=== PATIENT | male | born 1975 ===

== ENCOUNTER 2021-12-11 20:08 | Emergency (ER) | payer OTHER ==
[2021-12-11 21:19] LABS: Basophils # (Auto) 0.1 K/mm3 (0.0-0.1); Basophils % (Auto) 0.5 % (0.0-1.8); Eosinophils # (Auto) 0.1 K/mm3 (0.0-0.4); Eosinophils % (Auto) 1.3 % (0.0-4.3); Hematocrit 43.8 % (35.5-45.6); Hemoglobin 15.4 gm/dl (11.8-15.2); Lymphocytes # (Auto) 2.5 K/mm3 (1.2-5.4); Mean Corpuscular HGB Conc 35 % (32-34); Mean Corpuscular Volume 86 fl (84-94); Monocytes # (Auto) 0.6 K/mm3 (0.0-0.8); Monocytes % (Auto) 5.6 % (0.0-7.3); Platelet Count 241 K/mm3 (140-440); Red Blood Count 5.08 M/mm3 (3.65-5.03); Red Cell Distribution Width 14.3 % (13.2-15.2)
[2021-12-11 21:31] LABS: Alanine Aminotransferase 39 units/L (7-56); Albumin 4.8 g/dL (3.9-5); BUN/Creatinine Ratio 11; Blood Urea Nitrogen 10 mg/dL (9-20); Calcium 9.3 mg/dL (8.4-10.2); Hemolysis Index 13
[2021-12-12 05:51] LABS: Bilirubin,Urine Negative (Negative); Blood,Urine Negative (Negative); Color,Urine Yellow (Yellow)
[2021-12-12 05:52] LABS: RBC,Urine < 1.0 /HPF (0.0-6.0); WBC,Urine < 1.0 /HPF (0.0-6.0)
[2021-12-12] MEDS ORDERED: SODIUM CHLORIDE 0.9% 1000 ML 1,000 ML IV ONE (07:35)
[2021-12-12] MEDS ORDERED: ONDANSETRON 4 MG/2 ML INJ IV ONE (07:35)
--- NOTE | 2021-12-12 08:27 | Emergency Department Report ---
ED Abdominal Pain HPI - General Chief Complaint: Abdominal Pain Stated Complaint: SEVERE ABD PAIN PUI?: No Time Seen by Provider: 12/12/21 08:13 Source: patient Mode of arrival: Ambulatory Limitations: No Limitations - History of Present Illness Initial Comments: Patient is a 46-year-old male that came to the emergency room last night with generalized abdominal pain associated nausea vomiting and diarrhea. He does not think that he ate anything bad. He has no family members with the same. He denies fever or chills. Denies dysuria. Denies hematuria. Patient has been in the ER most of the night at the time of this provider exam: He reports that he feels better than he did when he came in. Patient had elevated blood pressure on admission but he denied chest pain or shortness of breath. He has no history of hypertension. MD Complaint: abdominal pain -: Sudden, hour(s) Location: diffuse Severity scale (0 -10): 5 Quality: aching Consistency: constant Improves With: nothing Worsens With: nothing Associated Symptoms: nausea, vomiting, diarrhea. denies: fever, chills, constipation, dysuria, hematemesis, hematochezia, melena, hematuria, anorexia, syncope - Related Data Previous Rx's Medication Instructions Recorded Last Taken Type Ondansetron [Zofran Odt] 4 mg PO Q8HR PRN #10 tab.rapdis 12/12/21 Unknown Rx Allergies Allergy/AdvReac Type Severity Reaction Status Date / Time No Known Allergies Allergy Verified 12/11/21 20:54 ED Review of Systems ROS: Stated complaint: SEVERE ABD PAIN Other details as noted in HPI Comment: All other systems reviewed and negative ED Past Medical Hx - Past Medical History Previous Medical History?: No - Surgical History Past Surgical History?: No - Family History Family history: no significant - Social History Smoking Status: Never Smoker Substance Use Type: None - Medications Home Medications: Home Medications Medication Instructions Recorded Confirmed Last Taken Type Ondansetron [Zofran Odt] 4 mg PO Q8HR PRN #10 tab.rapdis 12/12/21 Unknown Rx ED Physical Exam - General Limitations: No Limitations General appearance: alert, in no apparent distress - Head Head exam: Present: atraumatic, normocephalic - Eye Eye exam: Present: normal appearance - ENT ENT exam: Present: mucous membranes moist - Neck Neck exam: Present: normal inspection - Respiratory Respiratory exam: Present: normal lung sounds bilaterally. Absent: respiratory distress - Cardiovascular Cardiovascular Exam: Present: regular rate, normal rhythm. Absent: systolic murmur, diastolic murmur, rubs, gallop - GI/Abdominal GI/Abdominal exam: Present: soft, normal bowel sounds - Rectal Rectal exam: Present: deferred - Extremities Exam Extremities exam: Present: normal inspection - Back Exam Back exam: Present: normal inspection - Neurological Exam Neurological exam: Present: alert, oriented X3 - Psychiatric Psychiatric exam: Present: normal affect, normal mood - Skin Skin exam: Present: warm, dry, intact, normal color. Absent: rash ED Course Vital Signs 12/11/21 12/12/21 20:49 11:08 Temperature 99.1 F 98.3 F Pulse Rate 71 69 Respiratory 18 18 Rate Blood Pressure 174/107 Blood Pressure 139/89 [Left] O2 Sat by Pulse 95 99 Oximetry ED Medical Decision Making - Lab Data Result diagrams: 12/11/21 21:00 12/11/21 21:00 - Medical Decision Making Labs 12/11/21 12/11/21 12/12/21 21:00 21:00 05:26 WBC 10.4 RBC 5.08 H Hgb 15.4 H Hct 43.8 MCV 86 MCH 30 MCHC 35 H RDW 14.3 Plt Count 241 Lymph % (Auto) 24.0 [place] % (Auto) 5.6 Eos % (Auto) 1.3 Baso % (Auto) 0.5 Lymph # (Auto) 2.5 [place] # (Auto) 0.6 Eos # (Auto) 0.1 Baso # (Auto) 0.1 Seg Neutrophils % 68.6 Seg Neutrophils # 7.2 Sodium 137 Potassium 3.9 Chloride 98.7 Carbon Dioxide 26 Anion Gap 16 BUN 10 Creatinine 0.9 Estimated GFR > 60 BUN/Creatinine Ratio 11 Glucose 119 H Calcium 9.3 Total Bilirubin 1.10 AST 29 ALT 39 Alkaline Phosphatase 67 Total Protein 7.5 Albumin 4.8 Albumin/Globulin Ratio 1.8 Lipase 19 Urine Color Yellow Urine Turbidity Clear Urine pH 7.0 Ur Specific [place] 1.015 Urine Protein 30 mg/dl Urine Glucose (UA) Negative Urine Ketones Negative Urine Blood Negative Urine Nitrite Negative Ur Reducing Substances Not Reportable Urine Bilirubin Negative Urine Ictotest Not Reportable Urine Urobilinogen 2.0 Ur Leukocyte Esterase Negative Urine WBC (Auto) < 1.0 Urine RBC (Auto) < 1.0 U Epithel Cells (Auto) < 1.0 Vital Signs 12/11/21 20:49 Temperature 99.1 F Pulse Rate 71 Respiratory 18 Rate Blood Pressure 174/107 O2 Sat by Pulse 95 Oximetry Vital Signs 12/11/21 12/12/21 20:49 11:08 Temperature 99.1 F 98.3 F Pulse Rate 71 69 Respiratory 18 18 Rate Blood Pressure 174/107 Blood Pressure 139/89 [Left] O2 Sat by Pulse 95 99 Oximetry Labs noted. UA noted. Nominal exam is unremarkable. Soft nontender, obese. He has no CVA tenderness. His vital signs are normal. Patient has gastroenteritis. His abdominal exam benign I am not going to scan him. He has improved with hydration and is taking p.o. Patient hydrated with normal saline and given Zofran. On discharge exam patient reports feeling better. He is taking p.o. His vital signs of normalized. Note that the patient had an increased blood pressure on arrival but he has no history of hypertension he will monitor. Patient being discharged home with discharge plan of care including diet, activity, medications and follow-up. He verbalizes understanding. - Differential Diagnosis Gastroenteritis Critical care attestation.: If time is entered above; I have spent that time in minutes in the direct care of this critically ill patient, excluding procedure time. ED Disposition Clinical Impression: Gastroenteritis, Elevated blood pressure reading Disposition: 01 HOME / SELF CARE / HOMELESS Is pt being admited?: No Does the pt Need Aspirin: No Condition: Stable Instructions: Viral Gastroenteritis, Adult, [id number] Additional Instructions: ADVANCE DIET SLOWLY STAY WELL HYDRATED WITH WATER MED ORDERED TODAY FOR NAUSEA FOLLOW UP WITH PCP IN 48 HOURS TO BE SURE YOU FEEL BETTER REFERRAL BELOW MONITOR YOUR BLOOD PRESSURE IT WAS ELEVATED WHEN YOU CAME TO ER- AVOID ALCOHOL Prescriptions: Ondansetron [Zofran Odt] 4 mg PO Q8HR PRN #10 tab.rapdis PRN Reason: Vomiting Referrals: BERONICA SHEARER MD [Primary Care Provider] - 3-5 Days Forms: Accompanied Note, Work/School Release Form(ED) Time of Disposition: 11:07 Print Language: BRITISH
[2021-12-12 14:21] VITALS: BP 125/84
== END 2021-12-12 14:21 | disposition home or self-care (01) ==
LOC: ED 20:08
DX: K52.9 Noninfective gastroenteritis and colitis, unspecified (principal); R03.0 Elevated blood-pressure reading, without diagnosis of hypertension
CPT/HCPCS: 36415; 80053; 81001; 83690; 85025; 96361; 96374; 99283; J2405; J7030